=== PATIENT | female | born 1985 | race Caucasian/White ===

== ENCOUNTER 2018-04-19 07:38 | Emergency (ER) | payer BC ==
[2014-01-31 16:57] VITALS: BMI 35.1
[~2018-04-19 07:38] MED LIST: DICY20TA70 PO; HYDR-4240 PO; HYDR-653 PO; METH-543 PO; OXYC-865 PO
[2018-04-19] MEDS ORDERED: NS(*) 0.9% 1000 ML BAG 1,000 ML IV ONE (07:42)
[2018-04-19] MEDS ORDERED: KETOROLAC 30 MG/ML VIAL IVP ONE (07:45)
--- NOTE | 2018-04-19 07:59 | ER Report ---
History and Physical Time Seen By MD: 07:59 Hx. of Stated Complaint: PATIENT REPORTS LEFT SIDED FLANK PAIN THAT STARTED AROUND 2 HOURS AGO. HE REPORTS A HISTORY OF KIDNEY STONES HPI/ROS This is a 32-year-old female with a history of 2 prior episodes of kidney stones. She has never had to have lithotripsy. No abdominal pain. Left sided flank pain that started at 0530. Feels like previous kidney stones. Remainder of the 14 system rev: Yes Allergies: Coded Allergies: No Known Drug Allergies (Unverified , 02/27/13) Home Meds Active Scripts Methocarbamol (ROBAXIN-750) 750 Mg Tablet, 750 MG PO TID PRN for muscle spasm relief, #20 Prov:JAGDISH LI DO 10/24/14 Hydrocodone Bit/Acetaminophen (NORCO 5-325 TABLET) 1 Each Tablet, 1-2 EACH PO Q4H PRN for PAIN, #15 Prov:JAGDISH LI DO 10/24/14 Reviewed Nurses Notes: Yes Old Medical Records Reviewed: Yes Hx Smoking: Yes Smoking Status: Current: Every Day Smoker Exposure to Second Hand Smoke?: No Hx Substance Use Disorder: No Constitutional Vital Sign - Last 24 Hours 04/19/18 07:52 Pulse 74 Resp 24 B/P (MAP) 131/91 Pulse Ox 98 O2 Delivery Room Air Physical Exam General Appearance: The patient is alert, has no immediate need for airway protection and no current signs of toxicity. Eyes: Pupils equal and round no injection. Respiratory: Chest is non tender, lungs are clear to auscultation. Cardiac: regular rate and rhythm Gastrointestinal: Abdomen is soft and non tender, no masses, bowel sounds normal. Musculoskeletal: Left flank TTP Extremities have full range of motion and are non tender. Skin: No rashes or lesions. DIFFERENTIAL DIAGNOSIS: After history and physical exam differential diagnosis was considered for flank pain including but not limited to musculoskeletal causes, kidney stone, pyelonephritis, shingles, and intra-abdominal causes such as diverticulitis and appendicitis. Medical Decision Making Data Points Laboratory Hematology Test 04/19/18 07:46 Urine Color Yellow Urine Clarity Slightly-cloudy Urine pH 5.0 pH (4.8-9.5) Urine Specific Newton 1.014 Urine Protein 30 mg/dL (NEGATIVE) Urine Glucose (UA) Negative mg/dL (NEGATIVE) Urine Ketones Negative mg/dL (NEGATIVE) Urine Blood Large (NEGATIVE) Urine Nitrite Negative (NEGATIVE) Urine Bilirubin Negative (NEGATIVE) Urine Urobilinogen Negative mg/dL (0.2-1.9) Urine Leukocyte Esterase Negative (NEGATIVE) Urine RBC 1392 /HPF (0-2/HPF) Urine WBC None /HPF (0-5/HPF) Urine Squamous Epithelial Cells Moderate /LPF (</=FEW) Urine Bacteria Negative /HPF (NONE-FEW) Urine Mucus None /HPF (NONE-FEW) Urine HCG, Qualitative Negative (NEGATIVE) Chemistry Test 04/19/18 07:46 Urine Color Yellow Urine Clarity Slightly-cloudy Urine pH 5.0 pH (4.8-9.5) Urine Specific Newton 1.014 Urine Protein 30 mg/dL (NEGATIVE) Urine Glucose (UA) Negative mg/dL (NEGATIVE) Urine Ketones Negative mg/dL (NEGATIVE) Urine Blood Large (NEGATIVE) Urine Nitrite Negative (NEGATIVE) Urine Bilirubin Negative (NEGATIVE) Urine Urobilinogen Negative mg/dL (0.2-1.9) Urine Leukocyte Esterase Negative (NEGATIVE) Urine RBC 1392 /HPF (0-2/HPF) Urine WBC None /HPF (0-5/HPF) Urine Squamous Epithelial Cells Moderate /LPF (</=FEW) Urine Bacteria Negative /HPF (NONE-FEW) Urine Mucus None /HPF (NONE-FEW) Urine HCG, Qualitative Negative (NEGATIVE) Urinalysis Test 04/19/18 07:46 Urine Color Yellow Urine Clarity Slightly-cloudy Urine pH 5.0 pH (4.8-9.5) Urine Specific Newton 1.014 Urine Protein 30 mg/dL (NEGATIVE) Urine Glucose (UA) Negative mg/dL (NEGATIVE) Urine Ketones Negative mg/dL (NEGATIVE) Urine Blood Large (NEGATIVE) Urine Nitrite Negative (NEGATIVE) Urine Bilirubin Negative (NEGATIVE) Urine Urobilinogen Negative mg/dL (0.2-1.9) Urine Leukocyte Esterase Negative (NEGATIVE) Urine RBC 1392 /HPF (0-2/HPF) Urine WBC None /HPF (0-5/HPF) Urine Squamous Epithelial Cells Moderate /LPF (</=FEW) Urine Bacteria Negative /HPF (NONE-FEW) Urine Mucus None /HPF (NONE-FEW) Urine HCG, Qualitative Negative (NEGATIVE) ED Course/Re-evaluation ED Course The bedside ultrasound performed by nc reveals mild left sided hydronephrosis. HCG negative. No trauma. No abdominal pain or tenderness to palpation. No chest pain or shortness of breath. Pain feels like previous kidney stones. Given IV fluids, Zofran, Toradol, and morphine with relief of symptoms. I do not think this patient needs CT scan at this time. This is clearly consistent with a kidney stone. He was observed in the emergency department for approximately 3 hours after arrival. She has not had any additional episodes of pain. I will discharge her with antinausea and pain medication. I told her if the pain continued, she may need a CT scan in the future to determine the size of the stone and with her not she needs intervention if it doesn't pass. Otherwise she will follow-up with a urologist. Decision to Disposition Date: Apr 19, 2018 Decision to Disposition Time: 09:53 Depart Departure Latest Vital Signs Vital Signs Date Time Temp Pulse Resp B/P (MAP) Pulse Ox O2 Delivery O2 Flow Rate FiO2 04/19/18 07:52 74 24 131/91 98 Room Air Impression: Primary Impression: Ureteral calculi Condition: Improved Disposition: HOME OR SELF-CARE Referrals: KERVIN HERNANDEZ MD New Scripts Alfuzosin Hcl (ALFUZOSIN HCL) 10 Mg Tab.er.24h 10 MG PO QDAY for 3 Days, #3 Prov: DIGNA ZAMORA MD 04/19/18 Hydrocodone Bit/Acetaminophen (HYDROCODON-ACETAMINOPHEN 5-325) 1 Each Tablet 1 EACH PO Q6H for 4 Days, #14 TAB Prov: DIGNA ZAMORA MD 04/19/18 Ondansetron Hcl (ONDANSETRON HCL) 8 Mg Tablet 8 MG PO Q12H for 4 Days, TAB Prov: DIGNA ZAMORA MD 04/19/18 Patient Instructions: Kidney Stones (ED) DIGNA ZAMORA MD Apr 19, 2018 07:59
[2018-04-19] MEDS ORDERED: ONDANSETRON 4 MG/2 ML VIAL IVP ONE (08:00)
[2018-04-19] MEDS ORDERED: MORPHINE 4 MG/ML SDV IVP ONE (08:25)
[2018-04-19] MEDS ORDERED: TAMSULOSIN HCL 0.4 MG CAP PO ONE (08:45)
[2018-04-19] MEDS ORDERED: HYDR-385 PO (09:56)
[2018-04-19] MEDS ORDERED: ALFU10TA9 PO (09:56)
[2018-04-19] MEDS ORDERED: ONDA8TAB97 PO (09:56)
[2018-04-19 09:57] VITALS: BP 117/88
== END 2018-04-19 10:06 | disposition home or self-care (01) ==
LOC: ER 08:08
DX: N20.1 Calculus of ureter (principal); N13.30 Unspecified hydronephrosis
CPT/HCPCS: 81001; 81025; 96361; 96374; 96375; 99284; J1885; J2270; J2405; J7030

== ENCOUNTER → 2018-05-07 | Outpatient (CLI) | payer BC ==
[2014-01-31 16:57] VITALS: BMI 35.1
[~2018-05-07] MED LIST changes: +ALFU10TA9 PO; +HYDR-385 PO; +ONDA8TAB97 PO
--- NOTE | 2018-05-07 11:23 | RADIOLOGY IMAGING REPORT ---
FACILITY: [facility] PATIENT NAME: Melvi Bazan : 1985 MR: [id number] V: [id number] EXAM DATE: ORDERING PHYSICIAN: KERVIN HERNANDEZ TECHNOLOGIST: [place] [facility] [place] Melvi Bazan : 1985 Visit/Account:[id number] Date of Sevice: 05/07/2018 ABDOMEN/PELVIS W/O CONTRAST HISTORY: History of stones in the past. Pain for the past few weeks. TECHNIQUE: CT scan of the abdomen and pelvis performed from the lung base through pubic symphysis fol lowed by scan from lung base through pubic symphysis after administration of IV contrast. COMPARISON STUDIES: None One of the following dose optimization techniques was utilized in the performance of this exam: Autom ated exposure control; adjustment of the mA and/or kV according to the patient's size; or use of an i terative reconstruction technique. Specific details can be referenced in the facility's radiology C T exam operational policy. FINDINGS: Please note that this exam was tailored for detection of urinary stones. Portions of the upper abdome n may not be included. Also, with intravenous contrast, sensitivity to detection of parenchymal disea se is limited. Right kidney and ureter: Least five right renal stones of varying sizes from 2 mm up to 4 mm in size. No renal obstructive uropathy change. Following the course of the right ureter to the bladder demo nstrates no ureteral stones Left kidney and ureter: Eight nonobstructing stones in the left kidney ranging in size from 2 mm up t o 3.5 mm. No renal obstructive uropathy change. Following the course of the left ureter to the blad teri demonstrates no ureteral stone or obstructive change. Bladder: Negative Liver/Biliary: No gallstones. Liver homogenous with no focal liver lesions. Pancreas: Negative Spleen: Negative Adrenal glands: Negative Kidneys/Retroperitoneum: Negative Pelvic structures: There are several phleboliths in the pelvis. The uterus and adnexal regions ar e unremarkable. Bowel/peritoneum/mesenteries: Visualized bowel demonstrates no colonic pathology. There is no bowel inflammation. Appendix normal with no appendicitis. No free fluid in the pelvis. Vessels: Negative Musculoskeletal/body wall: Negative Lymph node assessment: Negative Lower chest: Negative IMPRESSION: 1. Bilateral renal nephrolithiasis. No renal obstructive uropathy change. No acute intra-abdominal or pelvic pathology. Report Dictated By: García Santos MD at 05/07/2018 11:12 AM Report E-Signed By: García Santos MD at 05/07/2018 11:19 AM WSN:[email or web address]
== END ==
LOC: CT 01:20
PROVIDERS: ATTEND Urology
DX: N20.0 Calculus of kidney (principal); N13.39 Other hydronephrosis
CPT/HCPCS: 74176

== ENCOUNTER → 2018-05-11 | Outpatient (CLI) | payer BC ==
[2014-01-31 16:57] VITALS: BMI 35.1
== END ==
LOC: LAB 10:24
PROVIDERS: ATTEND Urology
DX: N20.0 Calculus of kidney (principal)
CPT/HCPCS: 36415; 82310; 82340; 82507; 83945; 83970; 84560

== ENCOUNTER 2018-07-05 00:54 | Day surgery (SDC) | payer BC ==
[2014-01-31 16:57] VITALS: Ht 160 cm; Wt 79.8 kg
[~2018-07-05] VITALS: Ht 160 cm; Wt 79.8 kg
[2018-07-05] MEDS ORDERED: PROPOFOL EMUL(*) 10MG/ML 20 ML 60 ML ONE (09:33)
[2018-07-05] MEDS ORDERED: ONDANSETRON 4 MG/2 ML VIAL ONE (09:33)
[2018-07-05] MEDS ORDERED: DEXAMETHASONE SOD PHOS 10MG/ML ONE (09:33)
[2018-07-05] MEDS ORDERED: fentaNYL CITR 100 MCG/2 ML AMP ONE (09:33)
[2018-07-05] MEDS ORDERED: LIDOCAINE MPF 1% 5 ML VIAL ONE (09:33)
[2018-07-05 10:01] LABS: PLATELET COUNT, AUTOMATED 309 K/uL (150-450)
[2018-07-05 10:15] VITALS: BP 120/86
[2018-07-05] MEDS ORDERED: KETAMINE HCL-NS 50 MG/5 ML SYR ONE (10:28)
[2018-07-05] MEDS ORDERED: LEVOFLOXACIN/D5W*500 MG/100 ML 100 ML IVPB ONE (10:30)
[2018-07-05] MEDS ORDERED: LIDOCAINE/SOD BICARB 8.4% SYR ID ONE (10:35)
[2018-07-05] MEDS ORDERED: FAMOTIDINE 20 MG TAB PO ONE (10:35)
[2018-07-05] MEDS ORDERED: MIDAZOLAM 2 MG/2 ML VIAL IVP PRN (10:35)
[2018-07-05] MEDS ORDERED: NORMOSOL R SOLN(*) 1000 ML BAG 1,000 ML IV PRN (10:35)
[2018-07-05] MEDS ORDERED: KETOROLAC 30 MG/ML VIAL ONE (10:59)
[2018-07-05] MEDS ORDERED: HYDR-385 PO (11:56)
[2018-07-05 12:05] VITALS: BP 117/76
--- NOTE | 2018-07-05 12:14 | RADIOLOGY IMAGING REPORT ---
FACILITY: [facility] - [place] PATIENT NAME: Melvi Bazan : 1985 MR: [id number] V: [id number] EXAM DATE: ORDERING PHYSICIAN: KERVIN HERNANDEZ TECHNOLOGIST: Location: [facility] - [place] Patient: Melvi Bazan : 1985 Visit/Account:[id number] Date of Sevice: 07/05/2018 Technique: RETROGRADE PYELOGRAM HISTORY: stones Comparison studies: CT abdomen pelvis May 07, 2018 FINDINGS: Portable operative fluoroscopic images were obtained of the right hemiabdomen and pelvis. There has been cannulation of the right ureter with a wire noted extending into the right-sided colle cting system. Air Kerma: 12.7 mGy IMPRESSION: 1. Intraoperative fluoroscopic radiographs as described above. Please see operative report for furt her details. Report Dictated By: Zachery Lama DO at 07/05/2018 12:09 PM Report E-Signed By: Zachery Lama DO at 07/05/2018 12:10 PM WSN:[email or web address]
--- NOTE | 2018-07-05 12:34 | OPERATIVE REPORT 1 ---
EVENT DATE: July 05, 2018 SURGEON: Goyo Jovel MD ANESTHESIOLOGIST: John Tang MD ANESTHESIA: General. RETURNS CLERK: None. PREOPERATIVE DIAGNOSIS Right renal calculi. POSTOPERATIVE DIAGNOSIS Right renal calculi. PROCEDURE PERFORMED Right ureteroscopic stone extraction with stent placement. DESCRIPTION OF PROCEDURE Patient was brought to the operating room and after the adequate induction of general anesthesia she was placed in the relaxed dorsal lithotomy position. The genitalia were scrubbed, prepped and draped in a sterile fashion, the bladder examined with a rigid cystoscope. No mucosal abnormalities were noted within the bladder. A sensor wire was advanced at the level of the right renal pelvis and then a navigator sheath advanced to the level of the proximal ureter The inner cannula and wire were removed and the kidney examined with the flexible ureteroscope. It was apparent that many of the stones noted on the previous CT scan were, in fact, Mauricio's plaques. Using the [employer] basket, I was able to sequentially remove the stone material from the papilla and either send it for stone analysis or leave it free floating in the renal pelvis. Once accomplished, no further stone material was noted. I did a retrograde pyelogram through the scope to confirm that all calices were examined, which was done sequentially. At the end of the procedure, the sheath was removed over the sensor wire, which was back-loaded through the cystocope and a 24 cm 5-Frisian double J stent positioned under cystoscopic and fluoroscopic guidance. Her bladder was emptied. The pull-out string was secured to her abdomen. She was aroused from anesthesia and transported to PACU in stable condition. IZZY
[2018-07-05 12:44] VITALS: BP 127/90
[2018-07-05 12:46] VITALS: BP 121/92
[2018-07-09] MEDS ORDERED: SULF-198 PO (10:16)
== END 2018-07-05 12:06 | disposition home or self-care (01) ==
LOC: OR 00:54
PROVIDERS: ATTEND Urology
DX: N20.0 Calculus of kidney (principal)
CPT/HCPCS: 36415; 52332; 74420; 81025; 82365; 85025; 88300; C1894; C2617; J1100; J1885; J1956; J2001; J2250; J2405; J2704; J3010; J3490

== ENCOUNTER → 2018-07-09 | Outpatient (CLI) | payer BC ==
[2014-01-31 16:57] VITALS: BMI 35.1
[~2018-07-09] MED LIST changes: +SULF-198 PO
--- NOTE | 2018-07-09 09:57 | RADIOLOGY IMAGING REPORT ---
FAC[facility] PATIENT NAME: Melvi Bazan : 1985 MR: [id number] V: [id number] EXAM DATE: ORDERING PHYSICIAN: KERVIN HERNANDEZ TECHNOLOGIST: Location: [facility] - [place] Patient: Melvi Bazan : 1985 Visit/Account:[id number] Date of Sevice: 07/09/2018 Exam type: KUB SINGLE VIEW ABDOMEN History: confirm location of stent prior to removal Comparison: Retropyelogram July 05, 2018. Findings: There is a nonspecific bowel gas pattern present. There is a right ureteral stent in place the proxi mal pigtail projects just above the right transverse process of L2. The distal pigtail projects just to the right of midline low within the pelvis. No definite intra-abdominal calcifications are ident ified IMPRESSION: 1. Right ureteral stent as described above Report Dictated By: Lulú Garcia MD at 07/09/2018 9:51 AM Report E-Signed By: Lulú Garcia MD at 07/09/2018 9:53 AM WSN:[email or web address]
== END ==
LOC: RAD 08:48
PROVIDERS: ATTEND Urology
DX: Z01.818 Encounter for other preprocedural examination (principal); N20.1 Calculus of ureter
CPT/HCPCS: 74018

== ENCOUNTER → 2018-07-23 | Outpatient (CLI) | payer BC ==
[2014-01-31 16:57] VITALS: BMI 35.1
== END ==
LOC: LAB 14:12
PROVIDERS: ATTEND Urology
DX: N20.0 Calculus of kidney (principal)
CPT/HCPCS: 82365; 88300